=== PATIENT | female | born 1965 | race African-American/Black ===

== ENCOUNTER 2017-12-14 15:36 | Emergency (ER) | payer SELFPAY ==
[2017-12-14] MEDS ORDERED: LIDOCAINE 2% VISCOUS SOLN 20 ML UDCUP PO ONE (15:59)
[2017-12-14] MEDS ORDERED: MAG HYDROX/AL HYDROX/SIMETH SUSP 30 ML UDCUP PO ONE (15:59)
--- NOTE | 2017-12-14 16:00 | ER Document Report ---
ED ENT - General Chief Complaint: Pain Stated Complaint: THROAT PAIN,RASH Time Seen by Provider: 12/14/17 15:58 Mode of Arrival: Ambulatory Information source: Patient TRAVEL OUTSIDE OF THE [place] IN LAST 30 DAYS: No - HPI Patient complains to provider of: Throat problem Onset: Yesterday Onset/Duration: Persistent Severity: Mild Location of pain: Throat Associated symptoms: Sore throat Similar symptoms previously: No Recently seen / treated by doctor: Yes Notes: 52-year-old female presents to the emergency room today complaining of sensation of a lump in her throat on for the past 2 days, states it hurts to swallow and she has a sore throat as well, she is able to swallow but just reports sensation of pain, she also has a draining abscess to her right breast, this was treated with p.o. antibiotics by her primary care provider but she is concerned that it is draining today - Related Data Allergies/Adverse Reactions: No Known Allergies Allergy (Verified 07/29/15 00:52) Past Medical History - General Information source: Patient - Social History Smoking Status: Unknown if Ever Smoked Family History: Reviewed & Not Pertinent - Past Medical History Cardiac Medical History: Reports: Hx Hypercholesterolemia, Hx Hypertension - doesn't take meds as orders Denies: Hx Coronary Artery Disease, Hx Heart Attack Pulmonary Medical History: Denies: Hx Asthma, Hx Bronchitis, Hx COPD, Hx Pneumonia Neurological Medical History: Denies: Hx Cerebrovascular Accident, Hx Seizures Endocrine Medical History: Reports: Hx Diabetes Mellitus Type 2 - non compliant with meds Musculoskeletal Medical History: Denies Hx Arthritis - Immunizations Immunizations up to date: Yes Hx Diphtheria, Pertussis, Tetanus Vaccination: Yes Review of Systems - Review of Systems Constitutional: No symptoms reported EENT: See HPI Cardiovascular: No symptoms reported Respiratory: No symptoms reported Gastrointestinal: No symptoms reported Genitourinary: No symptoms reported Female Genitourinary: No symptoms reported Musculoskeletal: No symptoms reported Skin: See HPI Hematologic/Lymphatic: No symptoms reported Neurological/Psychological: No symptoms reported -: Yes All other systems reviewed and negative Physical Exam - Vital signs Vitals: Temp Pulse Resp BP Pulse Ox 98.9 F 83 16 143/78 H 98 12/14/17 15:45 12/14/17 15:45 12/14/17 15:45 12/14/17 15:45 12/14/17 15:45 Interpretation: Normal - General General appearance: Appears well, Alert - HEENT Head: Normocephalic, Atraumatic Eyes: Normal Conjunctiva: Normal Eyelashes: Normal Pupils: PERRL Pharynx: Erythema. No: Exudate, Tonsillar hypertrophy, Potential airway comprom. Neck: Normal. No: Thyroid nodule, Thyromegally - Respiratory Respiratory status: No respiratory distress Chest status: Nontender Breath sounds: Normal Chest palpation: Normal - Cardiovascular Rhythm: Regular Heart sounds: Normal auscultation Murmur: No - Abdominal Inspection: Normal Distension: No distension Bowel sounds: Normal Tenderness: Nontender Organomegaly: No organomegaly - Back Back: Normal, Nontender - Extremities General upper extremity: Normal inspection, Nontender, Normal color, Normal ROM , Normal temperature General lower extremity: Normal inspection, Nontender, Normal color, Normal ROM , Normal temperature, Normal weight bearing. No: Bola's sign - Neurological Neuro grossly intact: Yes Cognition: Normal Orientation: AAOx4 [place] Coma Scale Eye Opening: Spontaneous [place] Coma Scale Verbal: Oriented [place] Coma Scale Motor: Obeys Commands Jenny Coma Scale Total: 15 Speech: Normal Motor strength normal: LUE, RUE, LLE, RLE Sensory: Normal - Psychological Associated symptoms: Normal affect, Normal mood - Skin Skin Temperature: Warm Skin Moisture: Dry Skin Color: Normal Location of irregularity: Other - Draining abscess to the right medial breast with mildly erythematous indurated surrounding skin, positive purulent drainage with tenderness and slight necrotic tissue at abscess opening Course - Re-evaluation Re-evalutation: 12/14/17 16:55 She reports relief of symptoms with GI cocktail, likely related to acid reflux causing esophageal irritation, also sent swabs for right breast abscess, patient currently taking Keflex as prescribed by her primary care provider, will add Bactrim to this as well and advised patient that we will call her in 2- 3 days time when her results come back if we need to change her antibiotics, patient will be started on Pepcid, Bactrim and given a prescription for small amount of pain medication advised to follow-up with her primary care provider in 2-3 days or return if symptoms worsen, patient acknowledges understanding and agreement with this plan - Vital Signs Vital signs: Temp Pulse Resp BP Pulse Ox 98.9 F 83 16 143/78 H 98 12/14/17 15:45 12/14/17 15:45 12/14/17 15:45 12/14/17 15:45 12/14/17 15:45 Discharge - Discharge Clinical Impression: Throat pain, Breast abscess Condition: Stable Disposition: HOME, SELF-CARE Instructions: Abscess ([facility]), MRSA Cellulitis ([facility]), Oral Narcotic Medication ( [facility]), Sore Throat ([facility]) Additional Instructions: Follow up with your primary care provider in one to 2 days. Return to the emergency room immediately if symptoms worsen or any additional concerns. Prescriptions: Famotidine [Pepcid 20 mg Tablet] 20 mg PO BID #60 tablet Oxycodone HCl/Acetaminophen [Percocet 5-325 mg Tablet] 1 - 2 tab PO ASDIR PRN # 15 tablet PRN Reason: Sulfamethoxazole/Trimethoprim [Bactrim Ds Tablet] 1 each PO BID #20 tablet Referrals: CLAUDIA BLACKBURN DO [Primary Care Provider] - Follow up as needed
[2017-12-14] MEDS ORDERED: OXYCODONE-ACETAMINOPHEN 5-325 MG TABLET PO ONE (16:19)
[2017-12-14 17:08] VITALS: BP 152/76
== END 2017-12-14 17:00 | disposition home or self-care (01) ==
LOC: ER 15:36
DX: J02.9 Acute pharyngitis, unspecified (principal); R09.89 Other specified symptoms and signs involving the circulatory and respiratory systems; N61.1 Abscess of the breast and nipple; I10 Essential (primary) hypertension; E11.9 Type 2 diabetes mellitus without complications
CPT/HCPCS: 99283; 87070 ×2; 87205; 87880; 87075; 87077; 87186; J3490

== ENCOUNTER 2018-10-02 09:08 | Day surgery (SDC) | payer BC ==
[~2018-10-02 09:08] MED LIST: PROPOFOL INJ 200 MG/20 ML VIAL IV ONE
--- NOTE | 2018-10-02 11:26 | Operative Report ---
Operative Report DATE OF SURGERY: 10/02/18 Operative Report: The risks, benefits and alternatives of the procedure including the risk of bleeding, perforation requiring surgery have been explained to the patient in detail and informed consent has been obtained. The patient is brought back to the endoscopy suite and placed in a left, lateral decubital position. Timeout was called. Propofol medication is administered. A rectal examination is done which did not reveal any masses, tears or fissures. An Olympus videoscope was introduced into the patient's rectum. The scope was then carefully advanced all the way to the cecum. The cecum was identified by the usual anatomical landmarks including the ileocecal valve as well as the appendiceal office. Photodocumentation is obtained. The scope was then sequentially pulled back via the various segments of the colon including the ascending colon, hepatic flexu re, transverse colon, splenic flexure, descending colon and finally into the rectosigmoid portions of the colon. Retroflexion maneuver is performed. PREOPERATIVE DIAGNOSIS: Colorectal cancer screening. POSTOPERATIVE DIAGNOSIS: Mild right-sided colon inflammation status post biopsy rule out collagenous colitis. Multiple diverticulum throughout the colon not associated with any diverticulitis. Internal hemorrhoids OPERATION: Colonoscopy with biopsy SURGEON: XIOMARA CHANEY ANESTHESIA: LMAC TISSUE REMOVED OR ALTERED: As noted above. COMPLICATIONS: None. ESTIMATED BLOOD LOSS: None. INTRAOPERATIVE FINDINGS: As noted above. PROCEDURE: Patient tolerated the procedure well. No immediate postprocedure complications are noted. Patient discharged in good condition. Discharge date 10/02/2018. Discharge diet: Regular. Discharge activity: Regular. 2 to 3-week follow-up to discuss findings. Patient is instructed to call the office or proceed to the emergency room should there be any further proximal questions. If biopsies are negative 10-year surveillance colonoscopy.
[2018-10-02 11:45] VITALS: BP 130/75
[2018-10-02] MEDS ORDERED: PROPOFOL INJ 200 MG/20 ML VIAL IV ONE (12:23)
== END 2018-10-02 12:10 | disposition home or self-care (01) ==
LOC: END 09:08
PROVIDERS: ATTEND Internal Medicine Gastroenterology
DX: Z12.11 Encounter for screening for malignant neoplasm of colon (principal); K52.9 Noninfective gastroenteritis and colitis, unspecified; K57.30 Diverticulosis of large intestine without perforation or abscess without bleeding; K64.8 Other hemorrhoids; E11.9 Type 2 diabetes mellitus without complications; E78.2 Mixed hyperlipidemia; I10 Essential (primary) hypertension; Z87.891 Personal history of nicotine dependence; Z79.899 Other long term (current) drug therapy; Z79.4 Long term (current) use of insulin
CPT/HCPCS: 45380; 82962; 88305 ×2; J2704; 811

== ENCOUNTER 2019-02-17 15:48 | Emergency (ER) | payer BC ==
--- NOTE | 2019-02-17 16:10 | ER Document Report ---
ED Medical Screen (RME) - General Chief Complaint: Facial Swelling Stated Complaint: FACIAL SWELLING Time Seen by Provider: 02/17/19 16:03 Primary Care Provider: CLAUDIA BLACKBURN DO [Primary Care Provider] - Follow up as needed Mode of Arrival: Ambulatory Information source: Patient Notes: This 54-year-old female diabetic resents to the emergency department with facial swelling around her right ear right side of her neck. Reports that she is had it there for about a year last couple months has been swelling more and she has been squeezing it. Swelling firmness noted no warmth, no pustule. denies fever vomiting diarrhea, reports trouble breathing every now and then. Respiratory rate even unlabored. Denies MRSA. I have greeted and performed a rapid initial assessment of this patient. A comprehensive ED assessment and evaluation of the patient, analysis of test results and completion of the medical decision making process will be conducted by additional ED providers. Dictation of this chart was performed using voice recognition software; therefore, there may be some unintended grammatical errors. TRAVEL OUTSIDE OF THE [place] IN LAST 30 DAYS: No - Related Data Allergies/Adverse Reactions: No Known Allergies Allergy (Verified 10/02/18 09:18) Past Medical History - Past Medical History Cardiac Medical History: Reports: Hx Hypercholesterolemia, Hx Hypertension - doesn't take meds as orders Denies: Hx Coronary Artery Disease, Hx Heart Attack Pulmonary Medical History: Denies: Hx Asthma, Hx Bronchitis, Hx COPD, Hx Pneumonia Neurological Medical History: Denies: Hx Cerebrovascular Accident, Hx Seizures Endocrine Medical History: Reports: Hx Diabetes Mellitus Type 2 - non compliant with meds Renal/ Medical History: Denies: Hx Peritoneal Dialysis Musculoskeltal Medical History: Denies Hx Arthritis - Immunizations Immunizations up to date: Yes Hx Diphtheria, Pertussis, Tetanus Vaccination: Yes Doctor's Discharge - Discharge Referrals: CLAUDIA BLACKBURN DO [Primary Care Provider] - Follow up as needed
[2019-02-17 18:43] LABS: ABSOLUTE EOSINOPHILS # (AUTO) 0.1 10^3/uL (0.0-0.6); ABSOLUTE LYMPHOCYTES (AUTO) 2.6 10^3/uL (0.5-4.7); ABSOLUTE MONOCYTES (AUTO) 0.5 10^3/uL (0.1-1.4); ABSOLUTE NEUT (AUTO) 4.6 10^3/uL (1.7-8.2); BASOPHILS % (AUTO) 0.4 % (0-2); EOSINOPHILS % (AUTO) 1.5 % (0-6); HEMATOCRIT 41.8 % (36.0-47.0); HEMOGLOBIN 14.2 g/dL (12.0-15.5); LYMPHOCYTES % (AUTO) 32.6 % (13-45); MEAN CORPUSCULAR HEMOGLOBIN 31.1 pg (27.0-33.4); MEAN CORPUSCULAR VOLUME 92 fl (80-97); MONOCYTES % (AUTO) 6.4 % (3-13); PLATELET COUNT 263 10^3/uL (150-450); RED BLOOD COUNT 4.56 10^6/uL (3.72-5.28); RED CELL DISTRIBUTION WIDTH 13.8 % (11.5-14.0); SEGMENTED NEUTROPHILS % (AUTO) 59.1 % (42-78); TOTAL CELLS COUNTED % (AUTO) 100 %; WHITE BLOOD COUNT 7.9 10^3/uL (4.0-10.5)
[2019-02-17 19:07] LABS: ALBUMIN 3.9 g/dL (3.5-5.0); ALKALINE PHOSPHATASE 81 U/L (38-126); ANION GAP 10 (5-19); ASPARTATE AMINO TRANSFERASE 19 U/L (14-36); BILIRUBIN,DIRECT 0.1 mg/dL (0.0-0.4); BILIRUBIN,TOTAL 0.5 mg/dL (0.2-1.3); BLOOD UREA NITROGEN 14 mg/dL (7-20); CALCIUM 9.5 mg/dL (8.4-10.2); CARBON DIOXIDE 25 mmol/L (22-30); CHLORIDE 105 mmol/L (98-107); GLUCOSE 131 mg/dL (75-110); POTASSIUM 4.3 mmol/L (3.6-5.0); TOTAL PROTEIN 7.5 g/dL (6.3-8.2)
--- NOTE | 2019-02-17 20:59 | RADIOLOGY REPORT (SQ) ---
EXAM DESCRIPTION: CT NECK WITH IV CONTRAST COMPLETED DATE/TME: 02/17/2019 16:10 CLINICAL HISTORY: 54 years, Female, right side neck/facial swelling COMPARISON: None. TECHNIQUE: Contrast enhanced CT of the neck was performed. Coronal and sagittal reformations were created. Images stored on PACS. All CT scanners at this facility use dose modulation, iterative reconstruction, and/or weight based dosing when appropriate to reduce radiation dose to as low as reasonably achievable (ALARA). [facility]: Dose Right [facility]: CareDose [facility]: Dose Right [facility]: Teradose 4D [facility]: [employer] LIMITATIONS: None. FINDINGS: Limited evaluation of the brain parenchyma reveals no suspicious findings. However, there is a soft tissue lipoma located within the left posterior occipital scalp measuring 3.5 x 2.0 cm in size in image 5 of series 2. This appears to demonstrate some elements soft tissue stranding about its anterior aspect (image 9 of series 2). Limited evaluation of the lung apices reveals clear lungs. The thyroid gland enhances symmetrically. The hypopharynx, oropharynx, and nasopharynx show no suspicious abnormality. Globes and orbits show no suspicious finding. Paranasal sinuses and mastoid air cells are clear. There is mild rightward deviation of the nasal septum. Mild inflammatory stranding is noted about the superficial soft tissues of the rightward aspect of the face, particularly overlying the right platysma muscle. The right platysma muscle itself appears thickened compared to the contralateral side. In addition, there is a tiny focus of rim-enhancing fluid density located about the superficial soft tissues of the rightward aspect of the face, immediately overlying the inferior aspect of the right parotid gland, best visualized in image 38 of series 2. This measures approximately 0.5 x 0.5 cm in size. Superimposed amorphous fluid density is noted just deep to this area of rim enhancement, extending into the right parotid gland. The remainder of the right parotid gland appears to demonstrate elements of inflammatory stranding internally compared to the contralateral side. In addition, there are a few mildly prominent lymph nodes about the right parotid gland as well. The graft visualized portions of the thoracic aortic arch opacify with contrast normally. Vascular structures of the neck show no suspicious abnormality either. A few mildly prominent submental lymph nodes are also evident (level Ia and Ib), presumably reactive. Technically, these are not enlarged by size criteria. Assessment of the osseous structures reveal straightening of the normal cervical lordosis, either related to positioning and/or muscle spasm. Mild multilevel cervical spondylosis is evident, designated primarily by multilevel hypertrophic endplate spurring. IMPRESSION: Mild thickening of the right platysma muscle with associated overlying inflammatory stranding as well as a tiny rim-enhancing fluid collection located at the level of the inferior aspect of the right parotid gland. Overall, findings are suspicious for facial cellulitis, complicated by a suspected tiny abscess as well as adjacent phlegmon. The phlegmon appears to extend into the right parotid gland where there are a few small intraparotid lymph nodes which are likely reactive. Clinical follow-up to resolution is recommended. Soft tissue lipoma located within the left occipital scalp. However, this demonstrates some elements of inflammatory stranding. While this still statistically corresponds to a benign lipoma, a low-grade liposarcoma is not excluded. TECHNICAL DOCUMENTATION: Quality ID # 436: Final reports with documentation of one or more dose reduction techniques (e.g., Automated exposure control, adjustment of the mA and/or kV according to patient size, use of iterative reconstruction technique) copyright 2011 [employer]- All Rights Reserved
[2019-02-17] MEDS ORDERED: ONDANSETRON HCL INJ/PF 4 MG/2 ML SDV IV ONE (21:25)
[2019-02-17] MEDS ORDERED: OXYCODONE-ACETAMINOPHEN 5-325 MG TABLET PO ONE (21:25)
--- NOTE | 2019-02-17 21:25 | ER Document Report ---
ED ENT - General Chief Complaint: Facial Swelling Stated Complaint: FACIAL SWELLING Time Seen by Provider: 02/17/19 16:03 Primary Care Provider: DESTINEY JOHNSON DO [ASSOCIATE] - 02/19/19 CLAUDIA BLACKBURN DO [Primary Care Provider] - Follow up in 3-5 days Mode of Arrival: Ambulatory Notes: Patient is a 54-year-old female that comes to the emergency department for chief complaint of swelling to the right side of her face below the jaw. She states over the past couple of days it has become swollen painful. She denies difficulty or painful swallowing, she denies difficulty breathing, she denies fever/chills, she denies nausea/vomiting. She denies history of MRSA or abscesses. She does have a history of type 2 diabetes and hypertension. She states that she has had a small area that looks like a blackhead over the area for the past year and a couple of months ago she drained some pus out of it but it has not bothered her like this otherwise. TRAVEL OUTSIDE OF THE [place] IN LAST 30 DAYS: No - Related Data Allergies/Adverse Reactions: No Known Allergies Allergy (Verified 10/02/18 09:18) Past Medical History - General Information source: Patient - Social History Smoking Status: Current Every Day Smoker Chew tobacco use (# tins/day): No Frequency of alcohol use: Occasional Drug Abuse: None Lives with: Family Family History: Reviewed & Not Pertinent Patient has suicidal ideation: No Patient has homicidal ideation: No - Past Medical History Cardiac Medical History: Reports: Hx Hypercholesterolemia, Hx Hypertension - doesn't take meds as orders Denies: Hx Coronary Artery Disease, Hx Heart Attack Pulmonary Medical History: Denies: Hx Asthma, Hx Bronchitis, Hx COPD, Hx Pneumonia Neurological Medical History: Denies: Hx Cerebrovascular Accident, Hx Seizures Endocrine Medical History: Reports: Hx Diabetes Mellitus Type 2 - non compliant with meds Renal/ Medical History: Denies: Hx Peritoneal Dialysis Musculoskeletal Medical History: Denies Hx Arthritis - Immunizations Immunizations up to date: Yes Hx Diphtheria, Pertussis, Tetanus Vaccination: Yes Review of Systems - Review of Systems Constitutional: No symptoms reported EENT: See HPI Cardiovascular: No symptoms reported Respiratory: No symptoms reported Gastrointestinal: No symptoms reported Genitourinary: No symptoms reported Female Genitourinary: No symptoms reported Musculoskeletal: No symptoms reported Skin: See HPI Hematologic/Lymphatic: No symptoms reported Neurological/Psychological: No symptoms reported Physical Exam - Vital signs Vitals: Temp Pulse Resp BP Pulse Ox 98.7 F 86 17 174/80 H 96 02/17/19 15:59 02/17/19 15:59 02/17/19 15:59 02/17/19 15:59 02/17/19 15:59 - Notes Notes: GENERAL: Alert, interacts well. No acute distress. HEAD: Normocephalic, atraumatic. EYES: Pupils equal, round, and reactive to light. Extraocular movements intact. ENT: Oral mucosa moist, tongue midline. Oropharynx unremarkable. Airway patent. Nares patent, no nasal septal hematoma, TM's intact. There is some soft tissue swelling with firmness over the left mandible area inferior to the ear and protruding to approximately the mid mandible. There is no fluctuance or induration noted. No abnormal heat or erythema. The area is tender to palpation. The posterior neck area is consistent with a lipoma but the area is nontender. NECK: Full range of motion. Trachea midline. LUNGS: Clear to auscultation bilaterally, no wheezes, rales, or rhonchi. No respiratory distress. HEART: Regular rate and rhythm. No murmur ABDOMEN: Soft, non-tender. Non-distended. Bowel sounds present in all 4 quadrants. GENITOURINARY: Deferred EXTREMITIES: Moves all 4 extremities spontaneously. No edema, normal radial and dorsalis pedis pulses bilaterally. No cyanosis. BACK: no cervical, thoracic, lumbar midline tenderness. No saddle anesthesia, normal distal neurovascular exam. Moves all extremities in full range of motion. NEUROLOGICAL: Alert and oriented x3. Normal speech. Cranial nerves II through XII grossly intact. PSYCH: Normal affect, normal mood. SKIN: Warm, dry, normal turgor. No rashes or lesions noted. Course - Re-evaluation Re-evalutation: Patient has indurated swollen tender area over the right side of the face near the maxillary area, there appears to be an old blackhead but there is no fluctuant area noted. The area is not significantly erythematous or warm. The oral pharyngeal exam is unremarkable, her remaining exam is unremarkable. Vital signs unremarkable including no fever, she has no leukocytosis. CT imaging of the neck/face with contrast showing overall most likely cellulitis, possibly phlegmon and small abscess near the inferior aspect of the right parotid. Patient medicated for pain, started on antibiotics, I discussed with Dr. Perez, he recommends ENT consult. 02/17/19 21:45 Called and spoke with Dr. Johnson, ENT, he states he will review the images and call me back. ENT called back, states they recommend a dose of Unasyn, dexamethasone, Augmentin oral antibiotic, dexamethasone for 2 days, and follow-up in the ENT office for additional management. Patient is to have return precautions. I discussed this and recommendations in detail with patient. She is very agreeable with this plan. I also discussed the area over the lipoma in the back, I discussed how this is possibly more than a lipoma and could be cancerous, I as a result. I strongly recommended this be removed. Patient states agreement. She states she already set up an appoint with her primary care provider and she sees them in less than a week. She states she will follow-up with them and return if she worsens in any way. Patient and daughter state satisfaction with plan. - Vital Signs Vital signs: Temp Pulse Resp BP Pulse Ox 98.2 F 65 18 161/80 H 97 02/17/19 23:44 02/17/19 23:44 02/17/19 23:44 02/17/19 23:44 02/17/19 23:44 - Laboratory Result Diagrams: 02/17/19 18:20 02/17/19 18:20 Laboratory results interpreted by me: 02/17/19 18:20 Glucose 131 H Discharge - Discharge Clinical Impression: Facial cellulitis, Facial swelling Condition: Stable Disposition: HOME, SELF-CARE Additional Instructions: The imaging shows what appears to be cellulitis or infection of the skin with a possible tiny abscess. I spoke with Dr. Johnson (ENT), recommendation is for you to take the Augmentin antibiotic to completion, and also take the 2 days additional dexamethasone as prescribed. Follow-up closely with either the ENT office or with your primary care provider for a recheck and additional management. It is also possible this forms into a superficial abscess which might need to be drained. All your taking medications her blood sugar will be higher, avoid carbohydrates and remember to take your diabetic medications. Return if you worsen including severe swelling, developing or spreading redness, fever, or any other concerning or worsening symptoms. Prescriptions: Amox Tr/Potassium Clavulanate [Augmentin 875-125 Tablet] 1 tab PO BID 10 Days tablet Dexamethasone [Decadron 4 mg Tablet] 4 mg PO BID 2 Days #4 tablet Forms: Return to Work Referrals: CLAUDIA BLACKBURN DO [Primary Care Provider] - Follow up in 3-5 days DESTINEY JOHNSON DO [ASSOCIATE] - 02/19/19
[2019-02-17] MEDS ORDERED: AMPICILLIN SOD/SULBACTAM 3 GM VIAL IV ONE (21:44)
[2019-02-17] MEDS ORDERED: DEXAMETHASONE SOD PHOS INJ 10 MG/1 ML VIAL IV ONE (22:40)
[2019-02-17 23:47] VITALS: BP 161/80
== END 2019-02-17 23:42 | disposition home or self-care (01) ==
LOC: ER 15:48
DX: L03.211 Cellulitis of face (principal); R22.0 Localized swelling, mass and lump, head; E11.9 Type 2 diabetes mellitus without complications; I10 Essential (primary) hypertension; F17.200 Nicotine dependence, unspecified, uncomplicated; Z91.14 Patient's other noncompliance with medication regimen
CPT/HCPCS: 36415; 85025; 80053; 70491; J0295; J2405; J1100

== ENCOUNTER 2019-04-02 08:33 | Day surgery (SDC) | payer BC ==
[2019-03-26 10:49] LABS: ABSOLUTE EOSINOPHILS # (AUTO) 0.1 10^3/uL (0.0-0.6); ABSOLUTE LYMPHOCYTES (AUTO) 2.8 10^3/uL (0.5-4.7); ABSOLUTE MONOCYTES (AUTO) 0.5 10^3/uL (0.1-1.4); ABSOLUTE NEUT (AUTO) 3.1 10^3/uL (1.7-8.2); BASOPHILS % (AUTO) 0.6 % (0-2); EOSINOPHILS % (AUTO) 2.1 % (0-6); HEMATOCRIT 40.6 % (36.0-47.0); HEMOGLOBIN 13.8 g/dL (12.0-15.5); LYMPHOCYTES % (AUTO) 42.7 % (13-45); MEAN CORPUSCULAR HEMOGLOBIN 31.1 pg (27.0-33.4); MEAN CORPUSCULAR HGB CONC 33.9 g/dL (32.0-36.0); MEAN CORPUSCULAR VOLUME 92 fl (80-97); MONOCYTES % (AUTO) 7.3 % (3-13); PLATELET COUNT 218 10^3/uL (150-450); RED BLOOD COUNT 4.42 10^6/uL (3.72-5.28); RED CELL DISTRIBUTION WIDTH 13.7 % (11.5-14.0); SEGMENTED NEUTROPHILS % (AUTO) 47.3 % (42-78); TOTAL CELLS COUNTED % (AUTO) 100 %; WHITE BLOOD COUNT 6.6 10^3/uL (4.0-10.5)
[2019-03-26 11:11] LABS: ANION GAP 7 (5-19); BLOOD UREA NITROGEN 12 mg/dL (7-20); CALCIUM 9.7 mg/dL (8.4-10.2); CARBON DIOXIDE 27 mmol/L (22-30); CHLORIDE 104 mmol/L (98-107); GLUCOSE 172 mg/dL (75-110); POTASSIUM 4.6 mmol/L (3.6-5.0)
--- NOTE | 2019-03-26 18:04 | EKG REPORT ---
SEVERITY:- BORDERLINE ECG - SINUS RHYTHM BORDERLINE T ABNORMALITIES, INFERIOR LEADS : Confirmed by: Yaya Haji MD 26-Mar-2019 18:03:43
[~2019-04-02 08:33] MED LIST changes: +CEFAZOLIN SODIUM 2 GM in DEXTROSE 5%-WATER 100 ML IV PRN; +IBUPROFEN 800 MG in NORMAL SALINE 250 ML IV PRN; +LACTATED RINGERS 1000 ML IV PRN; +LIDOCAINE 0.5% INJ-PF (5 MG/ML) 50 ML SDV SUBCUT PRN; -PROPOFOL INJ 200 MG/20 ML VIAL IV ONE
[2019-04-02] MEDS ORDERED: SUCCINYLCHOLINE CHLORIDE INJ 200 MG/10 ML VIAL ONE (10:00)
[2019-04-02] MEDS ORDERED: LIDOCAINE 1% INJ-PF (10 MG/ML) 30 ML SDV ONE (10:44)
[2019-04-02] MEDS ORDERED: BUPIVACAINE HCL 0.25 % INJ/PF (2.5 MG/1 ML) 30 ML VIAL ONE (10:44)
[2019-04-02] MEDS ORDERED: FENTANYL CITRATE INJ/PF 100 MCG/2 ML AMPUL ONE (10:55)
[2019-04-02] MEDS ORDERED: MIDAZOLAM 2 MG/2 ML INJ ONE (10:55)
[2019-04-02] MEDS ORDERED: PROPOFOL INJ 200 MG/20 ML VIAL IV ONE (10:56)
[2019-04-02] MEDS ORDERED: BUPIVACAINE HCL 0.25 % INJ/PF (2.5 MG/1 ML) 30 ML VIAL INJ ONE ×2 (11:55)
[2019-04-02] MEDS ORDERED: MEPERIDINE HCL/PF INJ 25 MG/1 ML DISP.SYRIN IV PRN (12:13)
[2019-04-02] MEDS ORDERED: DIPHENHYDRAMINE HCL 50 MG/ML VIAL IV PRN (12:13)
[2019-04-02] MEDS ORDERED: PROMETHAZINE HCL INJ 25 MG/1 ML VIAL IV PRN (12:13)
[2019-04-02] MEDS ORDERED: MORPHINE SULFATE 10 MG/ML INJ IV PRN (12:13)
[2019-04-02] MEDS ORDERED: FENTANYL CITRATE INJ/PF 100 MCG/2 ML AMPUL IV PRN ×3 (12:13)
[2019-04-02 14:26] VITALS: BP 148/96
--- NOTE | 2019-04-05 07:37 | Discharge Summary ---
Discharge Summary (SDC) - Discharge Final Diagnosis: Posterior scalp lipoma Date of Surgery: 04/02/19 Discharge Date: 04/02/19 Condition: Stable Forms: ASU Anesthesia D/C Instruction, Return to Work, Discharge POC-Surgical Service Treatment or Instructions: NO DRIVING. NO ALCOHOL. NO LEGAL DECISIONS OR ACTIVITIES THAT REQUIRE YOUR FULL ATTENTION. DO NOT GET YOUR DRESSING WET. NO STRENUOUS ACTIVITY. CALL PHYSICIAN'S OFFICE FOR INSTRUCTIONS REGARDING DRESSING. REPORT FOUL DRAINAGE, FEVER OVER 101F, PUS TO PHYSICIAN. GO TO THE EMERGENCY ROOM FOR DIFFICULTY BREATHING, CHEST PAIN, NUMBNESS THAT DOES NOT GO AWAY, BLEEDING THAT DOES NOT GO AWAY. MAY USE A STOOL SOFTENER OF YOUR CHOICE. KEEP YOUR FOLLOW UP APPOINTMENT. REVIEW YOUR DISCHARGE PAPERWORK. Discharge home. Diet as tolerated. Activity: Nonstrenuous. [place] 5/325 mg p.o. every 6 hours as needed for pain. Okay to shower in 48 hours. Referrals: ELISE BEDOYA MD [ACTIVE STAFF] - 04/12/19 11:00 am Discharge Diet: As Tolerated Respiratory Treatments at Home: Deep Breathing/Coughing, Incentive Spirometer Discharge Activity: Balance Activity w/Rest, No Driving, Slowly Increase Activity Home Care Assistance: Provided by Family Report the Following to Your Physician Immediately: Shortness of Breath, Nausea, Vomiting, Increase in Pain, Fever over 101 Degrees, Unusual Bleeding, Redness, Swelling, Warmth, Increased Soreness, Drainage-Foul Smelling, Numbness, Seizure
--- NOTE | 2019-04-05 07:40 | Operative Report ---
Nonrecallable Operative Report DATE OF SURGERY: 04/02/19 PREOPERATIVE DIAGNOSIS: 5 cm posterior scalp lipoma POSTOPERATIVE DIAGNOSIS: Same as above OPERATION: 1. Excision of 5 cm posterior scalp lipoma. 2. Intermediate closure 5 cm posterior scalp incision SURGEON: [facility] SALESPERSON: MICHAELA OSUNA ANESTHESIA: GA TISSUE REMOVED OR ALTERED: 5 cm scalp lipoma COMPLICATIONS: None apparent ESTIMATED BLOOD LOSS: Minimal PROCEDURE: Drains/implants: None. Procedure in detail: After informed consent was obtained, the patient was brought to the operating room and laid in the right lateral decubitus position. The posterior scalp was prepped and draped in a normal sterile fashion. An incision was created over the mass. The incision was 5 cm in length. Dissection was carried through the subcutaneous tissues using sharp dissection and electrocautery. The mass extended all the way to the skull. The fatty tumor was elevated away from the skull and removed from the patient. Hemostasis was achieved using judicious amounts of electrocautery. The subcutaneous tissues were closed using 2-0 Vicryl suture in simple interrupted fashion. The overlying skin was closed using 3-0 nylon suture in vertical mattress fashion. A dressing was placed, and the procedure was concluded. All sponge, instrument, and needle counts were correct x2. Condition: Stable. Michaela Osuna PA-C was scrubbed and present the entirety of the procedure. She assisted with all portions of the procedure including opening of the skin, dissection of the mass, removal of the mass, closure of the subcutaneous tissue, and closure of the skin.
== END 2019-04-02 14:15 | disposition home or self-care (01) ==
LOC: OROUT 08:33
PROVIDERS: ATTEND Surgery
DX: D17.0 Benign lipomatous neoplasm of skin and subcutaneous tissue of head, face and neck (principal); E78.00 Pure hypercholesterolemia, unspecified; E11.9 Type 2 diabetes mellitus without complications; I10 Essential (primary) hypertension; L73.2 Hidradenitis suppurativa; F17.210 Nicotine dependence, cigarettes, uncomplicated; Z79.84 Long term (current) use of oral hypoglycemic drugs
CPT/HCPCS: 93005; 36415; 82962; 85025; 81025; 80048; 88304 ×2; 93010; 00300; 21012; J2250; J0690; J3010; J0330; J7060; J7050; J2704; J1741; 300; J3490

== ENCOUNTER → 2020-02-10 | Outpatient (CLI) | payer BC ==
--- NOTE | 2020-02-10 09:10 | WOMENS IMAGING REPORT ---
EXAM DESCRIPTION: 3D SCREENING MAMMO BILAT IMAGES COMPLETED DATE/TIME: 02/10/2020 8:55 am REASON FOR STUDY: Z12.31 ENCNTR SCREEN MAMMOGRAM FOR MALIGNANT NEOPLASM OF BREAST Z12.31 ENCNTR SCR EEN MAMMOGRAM FOR MALIGNANT NEOPLASM OF MOOKIE COMPARISON: 2019 EXAM PARAMETERS: Views: Standard craniocaudal and mediolateral oblique views of each breast recorded using digital acquisition and breast tomosynthesis. Read with the assistance of CAD. .[facility] - R2 Physical [employer]itness Teacher Version 9.2 LIMITATIONS: None. FINDINGS: No suspicious masses, suspicious calcifications or architectural distortion. No areas of c oncern. IMPRESSION: NEGATIVE MAMMOGRAM. BIRADS 1. BREAST DENSITY: b. There are scattered areas of fibroglandular density. BIRAD: ASSESSMENT: 1 NEGATIVE RECOMMENDATION: ROUTINE SCREENING COMMENT: The patient has been notified of the results by letter per MQSA requirements. Additional no tification policies are in place for contacting patient with suspicious or incomplete findings. Quality ID #[id number]: [employer] [place] [employer] [employer] recommends an annual screening mammogram for women aged 40 years or over. This facility utilizes a reminder system to ensure that all patients receive reminder letters, and/or direct phone calls for appointments. This includes reminders for routine scr eening mammograms, diagnostic mammograms, or other Breast Imaging Interventions when appropriate. Th is patient will be placed in the appropriate reminder system. TECHNICAL DOCUMENTATION: FINDING NUMBER: (1) ASSESSMENT: (1) JOB ID: [id number] 2010 [employer]- All Rights Reserved Reading location - IP/workstation name: [email or web address]
== END ==
LOC: WI 08:24
PROVIDERS: ATTEND Family Medicine
DX: Z12.31 Encounter for screening mammogram for malignant neoplasm of breast (principal)
CPT/HCPCS: 77063; 77067